=== PATIENT | male | born 1995 | race Asian ===

== ENCOUNTER 2024-09-15 11:01 | Emergency (ER) | payer OTHER ==
[~2024-09-15] VITALS: Ht 157.5 cm; Wt 82.8 kg
[2024-09-15] MEDS: PANTOPRAZOLE 40MG VIAL IV ONE (13:35)
[2024-09-15] MEDS ORDERED: ISOVUE-370 76% 100ML VIAL As Ordered ONE (13:45)
[2024-09-15 14:32] LABS: BASO % 0.3 % (0.0-1.0); EOS # 0.1 10^3/uL (0.0-0.5); EOS % 1.4 % (0.0-3.0); HEMATOCRIT 47.7 % (42.0-52.0); LYMPH # 1.9 10^3/uL (1.5-5.0); LYMPH % 19.3 % (24.0-44.0); MEAN CORPUSCULAR HEMOGLOBIN 30.6 pg (27.0-33.0); MEAN CORPUSCULAR HGB CONC 33.5 g/dl (32.0-36.5); MEAN CORPUSCULAR VOLUME 91.2 fl (80.0-96.0); MONO # 0.7 10^3/uL (0.0-0.8); NEUTROPHILS # 7.1 10^3/uL (1.5-8.5); NEUTROPHILS % 70.9 % (36.0-66.0); PLATELET COUNT, AUTOMATED 187 10^3/uL (150-450); RED BLOOD COUNT 5.23 10^6/uL (4.30-6.10)
[2024-09-15 14:43] LABS: INR 0.98; PARTIAL THROMBOPLASTIN TIME 32.2 SECONDS (24.8-34.2); PROTHROMBIN TIME 12.7 SECONDS (12.5-14.5)
[2024-09-15 15:17] VITALS: BP 131/81; TEMP 97.5; O2SAT 99
[2024-09-15 15:17] LABS: ALBUMIN 4.3 G/DL (3.2-5.2); BILIRUBIN,DIRECT 0.1 MG/DL (<0.4); BILIRUBIN,TOTAL 0.6 MG/DL (0.3-1.2); TOTAL PROTEIN 7.4 G/DL (5.7-8.2)
== END 2024-09-15 15:21 | disposition home or self-care (01) ==
LOC: M ED 11:01
DX: I88.0 Nonspecific mesenteric lymphadenitis (principal); J98.11 Atelectasis
CPT/HCPCS: 74174; 80047; 80076; 83690; 85025; 85610; 85730; 96374; 99284; J2470; Q9967